=== PATIENT | male | born 1995 | race Hispanic/Latino ===

== ENCOUNTER 2023-10-14 09:56 | Inpatient (IN) | payer SELFPAY ==
[~2023-10-14] VITALS: Ht 172.7 cm; Wt 87.2 kg
[2023-10-14 10:38] LABS: BASOPHILS # (AUTO) 0.05 K/uL (0.00-0.20); BASOPHILS % (AUTO) 0.6 % (0.0-5.0); EOSINOPHILS # (AUTO) 0.17 K/uL (0.00-0.70); HEMATOCRIT 45.8 % (42-54); IMMATURE GRANULOCYTE ABSOLUTE 0.04 K/uL (0-1); LYMPHOCYTES # (AUTO) 0.7 K/uL (1.0-4.8); LYMPHOCYTES % (AUTO) 8.5 % (21.0-51.0); MEAN CORPUSCULAR HEMOGLOBIN 29.9 pg (27.0-33.0); MEAN CORPUSCULAR HGB CONC 33.2 g/dL (32.0-36.0); MEAN CORPUSCULAR VOLUME 90.2 fL (79-99); MONOCYTES # (AUTO) 0.5 K/uL (0.1-1.0); MONOCYTES % (AUTO) 5.3 % (3.0-13.0); NEUTROPHILS # (AUTO) 7.3 K/uL (1.8-7.7); NEUTROPHILS % (AUTO) 83.1 % (40.0-77.0); PLATELET COUNT (AUTO) 240 K/uL (130-400); RED BLOOD CELL COUNT(AUTO) 5.08 MIL/uL (4.50-6.20); RED CELL DISTRIBUTION WIDTH 13.4 % (11.0-15.5); WHITE BLOOD COUNT (AUTO) 8.7 K/uL (4.8-10.8)
[2023-10-14 10:38] LABS: APPEARANCE,URINE CLEAR (CLEAR); BILIRUBIN,URINE NEGATIVE (NEGATIVE); COLOR,URINE YELLOW (YELLOW); GLUCOSE, URINE (UA) 200 mg/dL (NEGATIVE); KETONES,URINE >=80 mg/dL (NEGATIVE); LEUKOCYTE ESTERASE ,URINE NEGATIVE Leu/uL (NEGATIVE); NITRATE,URINE NEGATIVE (NEGATIVE); OCCULT BLOOD,URINE NEGATIVE (NEGATIVE); PROTEIN,URINE 70 mg/dL (NEGATIVE); UROBILINOGEN,URINE 3 mg/dL (0.2-1.0)
[2023-10-14] MEDS: KETOROLAC 15MG/ML VIAL (15MG/ML) IV ONE (10:44)
[2023-10-14] MEDS: FAMOTIDINE 20MG VIAL IV ONE (10:44)
[2023-10-14] MEDS: ONDANSETRON 4MG INJ IVP ONE (10:44)
[2023-10-14 10:51] LABS: CREATININE 0.8 mg/dL (0.5-1.3); POTASSIUM 3.6 mmol/L (3.5-5.1)
[2023-10-14 10:54] LABS: ADD UA MICROSCOPIC YES
[2023-10-14 10:59] LABS: ALBUMIN 4.1 g/dL (3.5-5.0); BILIRUBIN,TOTAL 1.8 mg/dL (0.2-1.0); TOTAL PROTEIN, SERUM 7.7 g/dL (6.0-8.3)
[2023-10-14 10:59] LABS: MUCUS,URINE RARE LPF (None Seen); SQUAMOUS EPITHELIAL CELL,UR RARE /HPF (0-2)
[2023-10-14] MEDS: 0.9%NACL 1000ML 1,000 ML IV ONE (11:00)
[2023-10-14] MEDS ORDERED: IOHEXOL 350 MG/ML 100ML INFUS..BTL IV ONE (11:57)
[2023-10-14] MEDS: MORPHINE 2 MG SYG IVP ONE ×2 (12:11→13:49)
[2023-10-14] MEDS ORDERED: acetaMINOPHEN WITH coDEINE 1 TAB TAB PO PRN (14:30)
[2023-10-14] MEDS ORDERED: ONDANSETRON 4MG INJ IV PRN (14:30)
[2023-10-14] MEDS ORDERED: acetaMINOPHEN 325 MG TAB PO PRN ×2 (14:30)
[2023-10-14] MEDS ORDERED: LORazepam 2 MG/ML 1 ML VIAL IM PRN (14:30)
[2023-10-14] MEDS: 0.9%NACL 1000ML 1,000 ML IV SCH (15:21)
[2023-10-14] MEDS: MORPHINE 2 MG SYG IV PRN (15:22)
[2023-10-14 17:12] VITALS: O2SAT 99
[2023-10-14 17:32] LABS: HEMOGLOBIN A1C 5.7 % (4.0-6.0)
[2023-10-14] MEDS: KETOROLAC 15MG/ML VIAL (15MG/ML) IV PRN (17:41)
[2023-10-14] MEDS: LABETALOL 20MG SYG IV ONE (18:39)
[2023-10-14 19:34] LABS: CHOLESTEROL 162 mg/dL (<200); HDL CHOLESTEROL 114 mg/dL (29-71); LDL DIRECT 41 mg/dL (0-99); TRIGLYCERIDES 48 mg/dL (30-200)
[2023-10-14 20:00] VITALS: BP 151/97; PULSE 90; RESP 20; O2SAT 98
[2023-10-14] MEDS: FAMOTIDINE 20MG VIAL IV SCH (20:08)
[2023-10-14] MEDS: ZOSYN 3.375GM+NS 50ML 50 ML IV SCH (20:08)
[2023-10-15] VITALS (7 sets, daily range): BP systolic 148–171; BP diastolic 91–103; PULSE 81–92; RESP 16–20; O2SAT 98
[2023-10-15] MEDS: acetaMINOPHEN WITH coDEINE 1 TAB TAB PO PRN (03:11)
[2023-10-15] MEDS: LABETALOL 20MG SYG IV PRN (04:21)
[2023-10-15 05:27] LABS: BASOPHILS # (AUTO) 0.02 K/uL (0.00-0.20); BASOPHILS % (AUTO) 0.2 % (0.0-5.0); EOSINOPHILS # (AUTO) 0.16 K/uL (0.00-0.70); EOSINOPHILS % (AUTO) 1.6 % (0.0-8.0); HEMATOCRIT 41.7 % (42-54); IMMATURE GRANULOCYTE ABSOLUTE 0.06 K/uL (0-1); LYMPHOCYTES # (AUTO) 0.9 K/uL (1.0-4.8); LYMPHOCYTES % (AUTO) 8.8 % (21.0-51.0); MEAN CORPUSCULAR HEMOGLOBIN 30.1 pg (27.0-33.0); MEAN CORPUSCULAR HGB CONC 33.1 g/dL (32.0-36.0); MEAN CORPUSCULAR VOLUME 90.8 fL (79-99); MONOCYTES # (AUTO) 0.9 K/uL (0.1-1.0); MONOCYTES % (AUTO) 8.6 % (3.0-13.0); NEUTROPHILS % (AUTO) 80.2 % (40.0-77.0); PLATELET COUNT (AUTO) 199 K/uL (130-400); RED BLOOD CELL COUNT(AUTO) 4.59 MIL/uL (4.50-6.20); RED CELL DISTRIBUTION WIDTH 13.5 % (11.0-15.5)
[2023-10-15 07:20] LABS: ERYTHROCYTE SEDIMENTATION RATE 7 MM/HR (0-15)
[2023-10-15] MEDS: ENOXAPARIN SODIUM 30 MG/0.3 ML SQ SCH (11:05)
[2023-10-16] VITALS: BP 180/70; PULSE 74; RESP 18
[2023-10-16 01:52] VITALS: BP 139/88; PULSE 71
[2023-10-16 04:00] VITALS: BP 138/83; PULSE 79; RESP 18
[2023-10-16 05:55] LABS: ALBUMIN 3.1 g/dL (3.5-5.0); BILIRUBIN,TOTAL 1.1 mg/dL (0.2-1.0); CREATININE 0.9 mg/dL (0.5-1.3); POTASSIUM 3.1 mmol/L (3.5-5.1); TOTAL PROTEIN, SERUM 6.7 g/dL (6.0-8.3)
[2023-10-16 08:00] VITALS: BP 129/87; PULSE 66; RESP 18; O2SAT 99
[2023-10-18 21:45] LABS: HEPATITIS A IGM ANTIBODY Non-Reactive (Nonreactive); HEPATITIS B CORE IGM ANTIBODY Non-Reactive (Negative); HEPATITIS B SURFACE ANTIGEN Non-Reactive (Nonreactive); HEPATITIS C ANTIBODY Non-Reactive (Nonreactive)
== END 2023-10-16 11:12 | disposition left against medical advice (07) | DRG 439 ==
LOC: EDH 09:56 → EDHIP 09:57 → 3CH 17:15
PROVIDERS: ADMIT Internal Medicine; ATTEND Internal Medicine
DX: K85.90 Acute pancreatitis without necrosis or infection, unspecified (principal); E87.1 Hypo-osmolality and hyponatremia; K82.8 Other specified diseases of gallbladder; R74.01 Elevation of levels of liver transaminase levels; I10 Essential (primary) hypertension; E86.0 Dehydration; F10.20 Alcohol dependence, uncomplicated; Z53.29 Procedure and treatment not carried out because of patient's decision for other reasons
CPT/HCPCS: 36415; 74177; 76705; 80053; 80061; 80074; 81001; 83036; 83690; 84478; 85025; 85651; 96375; 96376; G0378; J1650; J1885; J2270; J2405; J2543; J3490; J7030; Q9967